=== PATIENT | female | born 1985 | race Caucasian/White ===

== ENCOUNTER 2019-01-18 15:31 | Emergency (ER) | payer OTHER ==
[2019-01-18] MEDS ORDERED: Betamethasone Soluspan 30 mg/5mL Inj Susp IM STA (16:20)
[2019-01-18 17:10] LABS: SQUAMOUS EPITHIAL 11 /hpf (0-5); URINE BACTERIA OCC (<OCC); URINE BILIRUBIN NEGATIVE (NEGATIVE); URINE BLOOD NEGATIVE (NEGATIVE); URINE CLARITY Hazy (Clear); URINE COLOR Yellow (YELLOW); URINE GLUCOSE (UA) NORMAL (Normal); URINE LEUKOCYTE ESTERASE NEG Leu/uL (Negative); URINE PROTEIN NEGATIVE (NEGATIVE); URINE UROBILINOGEN NORMAL mg/dL (0.2-1.0)
--- NOTE | 2019-01-18 18:19 | OBHP ---
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 Per her LITHOPONE MILL WORKER request, pt to receive NST and bethamethasone shot. She is estimated at 35 weeks gestation via ultrasound and her e stimated due date is 02/22/19. Pt was told that her current baby has low weight. She has followed up re gularly to all visits and taken vitamins appropriately. She feels normal mov ement however denies feeling contractions. She reports she occasionally feels headache, however is no t experiencing symptoms currently. She denies CHIRINOS, BV or EP. Also denies fevers, chills, dizziness, ch est pain, palpitatoins, shortness of breath, nausea, vomiting, constipation, diarrhea, vaginal disch arge, vaginal bleeding, dysuria, hematuria or LOF. OB history: . Previous delivered at 36.5 weeks via due to nuchal cord. There were no other complications associated and she delivered a baby girl who is now 4 years old. Fi rst child was born with birthweight _6 pounds. She breast fed her previous child. Release Specialist History: No history of STDs, previously used oral contraceptive pills in the past that she sto pped taking due to irregular periods and spotting. LMP: 05/2018 She reports periods on her OCP that oc cured every 2-4 weeks. When she was not on her OCP, her periods lasted 4-5 days, were heavy, and occu rred irregularly every 45-60 days. PMH: hypertension (she has been treated in the past, before , but admits poor compliance and stopped taking her pills once her blood pressure normalized) PSH: 2014 Social history: She does not smoke, take recreational drugs, or drink alcohol. She lives at home w ith her and 4 year old daughter. 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 Her is inv oled in her child's care. Allergies: NKDA Meds: vitamins, iron pills Family history: mother had hypertension and from a stroke at age 36, father f rom possible stroke or homicide OBGYN: Dr. Martini Electronics Technician Apprentice: Dr. Buckley Vitals: T: BP: 129/72 P: 78 PE: as noted Labs: ( labs) Blood type/rh: B+ HSV1 IGG: (+). IGM (-). HSV2: (-) Varicella/Rubella: Immune RPR/HepBsAg/HepCAb/HIV: nonreactive Assessment: -33y/o at 35.0 weeks gestation presents from [facility] clinic for administration of betametha sone injection and NST with concern for Labor since Hx of Delivery. -No vaginal fluid, no signs of ROM or contractions -NST reactive, category 1 tracing -BP controlled -No proteinuria on U/A Plan: -NST -U/A -Administer betamethasone 12mg IM. Administer 2nd dose in 24 hours -Continue routine pre- care -Continue multivitamins, iron supplementation -Case discussed with Dr. Martini -Pt stable to discharge Case discussed with Dr. Brady Rabago PGY1 Pt seen and examined with Dr. Mcintosh and all of his findings and POC were reviewed and agreed on. Pelvic Type - PN: Adequate Extremities - PN: Normal Abdomen - PN: Normal Back - PN: Not Done Breast - PN: Not Done Lungs - PN: Normal Heart - PN: Normal Thyroid - PN: Not Done Neurologic - PN: Normal HEENT - PN: Normal General - PN: Normal FHR - Baseline A Provider: 150 Membranes, Provider: Intact Comments, ACOG Physical Exam: Gen: WDWN NAD Neuro: A_O x 3, no FND CV: RRR, S1/S2 present, no m/r/g Pulm: CTA, no w/r/r noted Abdomen: Soft, nondistended. Fundal height 30cm above PS Ext: trace non-pitting edema Gestation - Est Wks by US: 35.0 EGA AdmitDate IP: 35.0 Vital Signs Provider: Reviewed IP Chief Complaint: evaluation NICHD Variability Prov Fetus A: Moderate 6-25bpm NICHD Accel Fetus A IP Provider: 10X10 FHR Category Provider Fetus A: Category I NICHD Decel Fetus A IP Provider: None Genitourinary Exam: Normal DTRs - PN: Not Done
--- NOTE | 2019-01-18 18:41 | OBDCSUM ---
Datetime: 01/18/2019 17:18 Discharged to, Provider: Home Follow up at, Provider: Dr martini Disch Instr Activity: Normal activity Disch Instr Diet: Regular Discharge Instructions, Provider: Specific instructions as noted Discharge Time: 01/18/2019 17:19 Follow up in weeks, Provider: 24 hours- [facility] Disch Referrals: None Discharge Instruct Comment, Prov: Return in 24 hours for repeat Betamethasone injection Contraception discussed, Prov: Yes Disch Activity Restrictions: No exercising; No lifting; Minimize stair-climbing; No sexual activity; Nothing in vagina - [place], tampons, douche Discharge Comment, Provider: -Pt without signs of labor. No vaginal fluid. -No signs of PPRO M- -NST reactive, category 1 tracing -U/A revealing no proteinuria. BP controlled. No signs or symptoms of preeclampsia - Probable Gestational Hypertension - Betamethasone 12mg IM administered -Pt instructed to return in 24 hours for 2nd dose -Case discussed with Dr. Martini, agrees with current plan -Pt stable to discharge with follow-up tomorrow. Will f/u BP again tomorrow Preeclampsia precautions given Case discussed with Dr. Brady Rabago PGY1 Pt seen and examined with Dr. Mcintosh and all of her findings and POC were fully discussed and agree d on. Discharge Diagnosis Prov Other: Hx of Delivery Poor Growth Contraception after Delivery: Undecided
[2019-01-18 21:31] VITALS: BP 136/87; PULSE 74
== END 2019-01-18 17:29 | disposition home or self-care (01) ==
LOC: C.EROB 15:31
DX: O36.5930 Maternal care for other known or suspected poor fetal growth, third trimester, not applicable or unspecified (principal); Z3A.35 35 weeks gestation of pregnancy
CPT/HCPCS: 81001; 96372; 99284; J0702

== ENCOUNTER 2019-01-19 16:40 | Emergency (ER) | payer OTHER ==
[2019-01-19] MEDS ORDERED: Betamethasone Soluspan 30 mg/5mL Inj Susp IM STA (17:09)
[2019-01-19 17:32] LABS: BASO % 0.1 % (0.0-2.0); HEMOGLOBIN 11.2 g/dL (11.0-16.0); LYMPH # 1.8 K/uL (1.0-4.3); LYMPH % 14.9 % (20.0-40.0); MEAN CELL VOLUME 84.8 fL (81.0-99.0); MEAN CORPUSCULAR HEMOGLOBIN 27.4 pg (27.0-31.0); MEAN CORPUSCULAR HGB CONC 32.3 g/dL (33.0-37.0); MEAN PLATELET VOLUME 10.9 fL (7.2-11.7); MONO # 0.8 K/uL (0.0-0.8); MONO % 6.9 % (0.0-10.0); NEUT # 9.5 K/uL (1.8-7.0); NEUT % 78.1 % (50.0-75.0); NRBC % 0.1 % (0.0-2.0); RBC 4.1 Mil/uL (3.80-5.20); RED CELL DISTRIBUTION WIDTH 14.1 % (11.5-14.5); WHITE BLOOD COUNT 12.2 K/uL (4.8-10.8)
[2019-01-19 17:52] LABS: SQUAMOUS EPITHIAL 4 /hpf (0-5); URINE BACTERIA RARE (<OCC); URINE BILIRUBIN NEGATIVE (NEGATIVE); URINE BLOOD NEGATIVE (NEGATIVE); URINE CLARITY Clear (Clear); URINE COLOR Yellow (YELLOW); URINE GLUCOSE (UA) NORMAL (Normal); URINE LEUKOCYTE ESTERASE NEG Leu/uL (Negative); URINE PROTEIN NEGATIVE (NEGATIVE); URINE UROBILINOGEN NORMAL mg/dL (0.2-1.0)
[2019-01-19 17:55] LABS: ALB/GLOB RATIO 1.2 (1.0-2.1); ALBUMIN 3.7 g/dL (3.5-5.0); ALT/SGPT 7 U/L (9-52); AST/SGOT 17 U/L (14-36); BLOOD UREA NITROGEN 10 mg/dL (7-17); CALCIUM 9.2 mg/dl (8.6-10.4); GFR NON-AFRICAN AMERICAN > 60; URIC ACID 6.5 mg/dL (2.2-7.5)
[2019-01-19 18:42] LABS: PROTHROMBIN TIME 10.9 SECONDS (9.7-12.2)
--- NOTE | 2019-01-19 19:12 | OBHP ---
Datetime: 01/19/2019 17:13 IP Adm Impression: , intrauterine IP Admit Plan: Observation/Evaluation Admit Comment, IP Provider: 33 year old F presents as a follow-up visit from yesterday's vis it. Per HUMAN SERVICE COORDINATOR with concern for low weight and premature delivery. Per her HUMAN SERVICE COORDINATOR reque st, per Dr. Martini, pt to receive NST and bethamethasone injection x 2. She received first 12mg IM be thamethasone yesterday without complications. She reports no acute events since yesterday. Shes at 35 .1 wks with GEORGE 02/22/19. Pt continues to feel movement and denies contractions. She reports no c omplaints during today's visit. She denies CHIRINOS, BV or EP. Also denies fevers, chills, dizziness, chest pain, palpitations, shortness of breath, nausea, vomiting, constipation, diarrhea, vaginal discharg e, vaginal bleeding, dysuria, hematuria or LOF. Gen: WDWN NAD Neuro: A_O x 3, no FND. EOMI, PERRL CV: RRR, S1/S2 present, no m/r/g Pulm: CTA b/l u/l lobes Abdomen: Soft, nondistended. Fundal height 30cm above PS Ext: no peripheral edema Labs: Pending OB history: . Previous delivered at 36.5 weeks via due to nuchal cord. There were no other complications associated and she delivered a baby girl who is now 4 years old. Fi rst child was born with birthweight _6 pounds. She breast fed her previous child. 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 LMP: 05/2018 She reports periods on her OCP that oc cured every 2-4 weeks. When she was not on her OCP, her periods lasted 4-5 days, were heavy, and occu rred irregularly every 45-60 days. PMH: hypertension (she has been treated in the past, before , but admits poor compliance and stopped taking her pills once her blood pressure normalized) PSH: 2014 Social history: She does not smoke, take recreational drugs, or drink alcohol. She lives at home w ith her and 4 year old daughter. 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 Her is inv oled in her child's care. Allergies: NKDA Meds: vitamins, iron Family history: mother had hypertension and from a stroke at age 36, father f rom possible stroke or homicide OBGYN: Dr. Martini Store Product Demonstrator: Dr. Buckley Assessment: -33y/o at 35.1 weeks gestation presents for 2nd dose of betamethasone injection and NST wi th concern for Labor d/t Hx of Delivery. Pt received 1st betamethasone treatment yest bernice. -No vaginal fluid, no signs of ROM or contractions -NST reactive, category 1 tracing -Questionable PIH/ Elevated BP's and asymptomatic Plan: -NST -Will obtain PIH labs given elevated BP. UA/CBC/CMP/PT/PTT/Fibrinogen/Uric Acid/LDH -repeat U/A with urine protein/cr ratio -Administer 2nd dose of betamethasone 12mg IM -Continue routine pre- care -Continue multivitamins, iron supplementation Case discussed with Dr. Brady Rabago PGY1 Pt seen and examined with Dr. Mcintosh and agree with his findings and POC. Pelvic Type - PN: Not Done Extremities - PN: Normal Abdomen - PN: Normal Back - PN: Not Done Breast - PN: Not Done Lungs - PN: Normal Heart - PN: Normal Thyroid - PN: Not Done Neurologic - PN: Normal HEENT - PN: Normal General - PN: Normal Presentation-Admit: Vertex FHR - Baseline A Provider: 150 Membranes, Provider: Intact Contraction Comments Provider: Ocassional Comments, ACOG Physical Exam: Gen: WDWN NAD Neuro: A_O x 3, no FND CV: RRR, S1/S2 present, no m/r/g Pulm: CTA, no w/r/r noted Abdomen: Soft, nondistended. Fundal height 30cm above PS Ext: trace non-pitting edema Gestation - Est Wks by US: 35.1 EGA AdmitDate IP: 35.1 Vital Signs Provider: Reviewed IP Chief Complaint: evaluation NICHD Variability Prov Fetus A: Moderate 6-25bpm NICHD Accel Fetus A IP Provider: 10X10 FHR Category Provider Fetus A: Category I NICHD Decel Fetus A IP Provider: None Genitourinary Exam: Not Done DTRs - PN: Not Done
--- NOTE | 2019-01-19 19:16 | OBDCSUM ---
Datetime: 01/19/2019 18:55 Discharged to, Provider: Home Follow up at, Provider: Dr. Lianet Delgadillo Instr Activity: Normal activity Disch Instr Diet: Restricted, specify Discharge Diet restrict Prov: Restrict your salt intake Discharge Instructions, Provider: Routine instructions given Discharge Time: 01/19/2019 19:00 Follow up in weeks, Provider: Keep your next scheduled appointment with Dr Lianet Delgadillo Referrals: None Contraception discussed, Prov: Yes Disch Activity Restrictions: No lifting; No sexual activity; Nothing in vagina - [place], tampon s, douche Discharge Diagnosis Prov Other: Hx of delivery Gestational Hypertension Contraception after Delivery: Undecided
[2019-01-19 23:22] VITALS: BP 129/83; PULSE 79; RESP 18; TEMP 97.8; O2SAT 100
== END 2019-01-19 19:10 | disposition home or self-care (01) ==
LOC: C.EROB 16:40
DX: Z23 Encounter for immunization (principal); Z3A.35 35 weeks gestation of pregnancy
CPT/HCPCS: 80053; 81001; 82570; 83615; 84156; 84550; 85025; 85384; 85610; 85730; 96372; 99283; J0702